=== PATIENT | female | born 1955 | race Caucasian/White ===

== ENCOUNTER → 2018-04-12 08:23 | Outpatient (CLI) | payer OTHER, SELFPAY ==
[2018-04-12 11:21] LABS: ALT 44 U/L (12-78); AST 26 U/L (15-37); Albumin 3.7 g/dL (3.4-5.0); Alkaline Phosphatase 83 U/L (46-116); Anion Gap 7.2 mmol/L (3-11); BUN 21 mg/dL (7-18); Bilirubin, Total 0.5 mg/dL (0.2-1.0); CO2 29.8 mmol/L (21.0-32.0); CREATININE 0.76 mg/dL (0.55-1.02); Calcium 9.2 mg/dL (8.5-10.1); Chloride 108 mmol/L (98-107); Cholesterol 205 mg/dL (50-200); Glucose 97 mg/dL (70-100); HDL Cholesterol 57 mg/dL (40-60); LDL CHOLESTEROL 129 mg/dL (<100); Sodium 145 mmol/L (136-145); Total Protein 6.8 g/dL (6.4-8.2); Triglyceride 132 mg/dL (30-150)
== END ==
PROVIDERS: PCP Family Medicine; Visit Provider Family Medicine
DX: I10 Essential (primary) hypertension (principal)
CPT/HCPCS: 36415; 80053; 80061; 83721

== ENCOUNTER 2018-10-08 14:53 | Outpatient (REF) | payer OTHER, SELFPAY ==
--- NOTE | 2018-10-08 14:00 | PAPFT_PTH ---
PATIENT: Ximena Mcarthur LOC: [facility] U#:[id number] AGE/SX: 63/F ROOM: RE10/08/[address]: Holly Mcknight MD, DC : 1955 BED: DIS: 10/08/2018 SPEC #: [id number] RECD: 10/09/18 13:18 STATUS: ELSIE REQ #: [id number] JE: 10/08/18 14:[address]: Holly Mcknight [facility] Cytology RECD BY: Lizet Gastelum Tissues: 1 - CX/ENDOCX FOR PAP SMEARS Procedures: PAP THIN PREP/UVM Screening HPV DNA PROBE Comments: [id number]
== END 2018-10-08 15:13 ==
LOC: LBN 14:53
PROVIDERS: PCP Family Medicine; Visit Provider Family Medicine
DX: Z12.4 Encounter for screening for malignant neoplasm of cervix (principal); Z11.51 Encounter for screening for human papillomavirus (HPV)
CPT/HCPCS: 88142; 87624

== ENCOUNTER 2018-10-29 01:27 | Outpatient (CLI) | payer OTHER, SELFPAY ==
[2018-10-29 08:25] LABS: HCT 44.3 % (36.0-46.0); HGB 15.2 g/dL (12.0-15.5); Mean Corp. HGB Concentration 34.3 g/dL (32.0-36.0); Mean Corpuscular Hemoglobin 33.2 pg (27.0-33.0); Mean Corpuscular Volume 96.7 fL (80-95); Mean Platelet Volume 9.8 fL (8.0-11.0); Platelet Count 182 x1000/uL (130-400); RBC 4.58 m/cumm (4.00-5.20); RBC Distribution Width 12.7 % (11.7-14.6); White Blood Cell Count 3.42 k/cumm (4.4-10.8)
[2018-10-29 09:17] LABS: HDL Cholesterol 57 mg/dL (40-60)
[2018-10-29 09:23] LABS: Hemoglobin A1C 5.3 % (4.5-6.2)
[2018-10-29 09:29] LABS: Cholesterol 198 mg/dL (50-200); LDL CHOLESTEROL 119 mg/dL (<100); TSH (W/Ref FT4) 2.46 uIU/mL (0.358-3.74); Triglyceride 75 mg/dL (30-150)
[2018-10-29 13:55] LABS: Iron 118 ug/dL (50-175)
== END 2018-10-29 01:47 ==
PROVIDERS: PCP Family Medicine; Visit Provider Family Medicine
DX: I10 Essential (primary) hypertension (principal); R53.83 Other fatigue
CPT/HCPCS: 36415; 80061; 83721; 85027; 83036; 83540; 84443

== ENCOUNTER 2019-03-14 11:05 | Outpatient (CLI) | payer OTHER, SELFPAY ==
--- NOTE | 2019-03-14 09:29 | DI.RAD_ITS ---
SYMPTOM/DIAGNOSIS: PAIN IN RT KATHE, PAIN IN LEFT HIP BILATERAL HIPS AND PELVIS: Comparison 12/29/15 and 12/11/16 There are again seen post surgical changes of a right total hip replacement. The orthopaedic hardware appears in good position. No suspicious lucencies are seen in or about the orthopaedic hardware. The left hip appears well maintained. There is a tiny calcification adjacent to the lateral aspect of the head of the left femur. It appears nonspecific and probably reflects old injury or chondrocalcinosis. No acute fracture or dislocation is appreciated. There are mild to moderate degenerative changes seen in the lower lumbar spine. The sacroiliac joints show mild degenerative changes. Mild cystic change and sclerosis is seen in the symphysis pubis which appears unchanged. IMPRESSION: 1. No acute abnormality. 2. Stable right THR 3. Degenerative changes in the lumbar spine.
== END 2019-03-14 11:25 ==
PROVIDERS: PCP Family Medicine; Visit Provider Student in an Organized Health Care Education/Training Program
DX: M25.552 Pain in left hip (principal); M25.551 Pain in right hip; Z96.641 Presence of right artificial hip joint; M53.3 Sacrococcygeal disorders, not elsewhere classified
CPT/HCPCS: 73521

== ENCOUNTER 2019-03-20 00:51 | Outpatient (CLI) | payer OTHER, SELFPAY ==
[2019-03-20] MEDS: Omnipaque 300 MG/ML 10 ML BTL IJ (10:13)
[2019-03-20] MEDS: methylPREDNISolone ACETATE 80 MG/ML VIAL IM (10:14)
[2019-03-20] MEDS: Bupivacaine 0.5% Pres-Free 10 ML VIAL 6 ML IJ (10:15)
--- NOTE | 2019-03-21 08:42 | W.PROCNOTE ---
Date of service: 03/20/19 Time of Service: 09:42 Procedure Note Date of procedure: 03/20/19 Procedure: Left Hip Injection with Fluoroscopic Guidance Surgeon/Proceduralist/Physician: Nicholas Padilla Procedure Diagnosis: Left Hip Osteoarthritis Procedure Indications: Tanya has had persistent pain of the LEFT hip and groin. Noninvasive measures have been tried. To serve as both diagnostic and therapeutic, an injection under fluoroscopy was recommended. I had discussed the risks of the procedure and the patient elected to proceed. Procedure Description: Tanya was greeted in the flouroscopy room. The correct side was identified and the consent was reviewed with the patient and signed. The patient was then placed in the supine position on the fluoroscopy table. The LEFT hip was then prepped with Chloraprep. The anterolateral injection starting point was identiifed by bony landmarks and fluoroscopy. The skin and soft tissue in the tract of the injection was anesthetized with 1% Lidocaine. A spinal needle was then inserted deep into the hip joint at the level of the lateral femoral neck under fluoroscopic guidance. A small amount of Omnipaque solution was injected to confirm intraarticular placement. Once confirmed, the hip was injected with 6cc of 0.5% Bupivicaine and 80mg of Depo-Medrol. A bandaid was placed on the injection site. The patient tolerated the procedure well and noted improvement in pre-injection pain.
== END 2019-03-20 01:11 ==
PROVIDERS: PCP Family Medicine; Visit Provider Student in an Organized Health Care Education/Training Program
DX: M16.12 Unilateral primary osteoarthritis, left hip (principal); M25.552 Pain in left hip
CPT/HCPCS: 20610; 77002; 76000; J1040

== ENCOUNTER 2019-06-13 11:03 | Outpatient (CLI) | payer OTHER, SELFPAY ==
[2019-06-13 12:00] LABS: Abs Immature Grans 0.01 k/cumm (0.0-0.09); Absolute Basophil Count 0.01 k/cumm (0.0-0.2); Absolute Eosinophil Count 0.38 k/cumm (0.0-0.7); Absolute Monocyte Count 0.51 k/cumm (0.11-0.7); Absolute Neutrophil Count 3.81 k/cumm (1.2-6.7); Basophils % 0.2; Eosinophils % 6.2; HCT 44.1 % (36.0-46.0); HGB 15.1 g/dL (12.0-15.5); Immature Grans % 0.2; Lymphocytes % 22.9; Mean Corp. HGB Concentration 34.2 g/dL (32.0-36.0); Mean Corpuscular Hemoglobin 33.1 pg (27.0-33.0); Mean Corpuscular Volume 96.7 fL (80-95); Monocytes % 8.3; Neutrophils % 62.2; Platelet Count 315 x1000/uL (130-400); RBC 4.56 m/cumm (4.00-5.20); RBC Distribution Width 12.8 % (11.7-14.6); White Blood Cell Count 6.12 k/cumm (4.4-10.8)
[2019-06-13 12:59] LABS: ALT 23 U/L (14-59); AST 17 U/L (15-37); Albumin 3.5 g/dL (3.4-5.0); Alkaline Phosphatase 77 U/L (46-116); Bilirubin, Direct 0.09 mg/dL (0.00-0.20); Bilirubin, Total 0.3 mg/dL (0.2-1.0); C-Reactive Protein 0.54 mg/dL (0.0-0.3); TSH (W/Ref FT4) 1.49 uIU/mL (0.36-3.74); Total Protein 6.8 g/dL (6.4-8.2)
[2019-06-16 15:29] LABS: ANA Interpretation Negative (NEGAT)
== END 2019-06-13 11:23 ==
PROVIDERS: PCP Family Medicine; Visit Provider Allergy & Immunology
DX: L50.1 Idiopathic urticaria (principal)
CPT/HCPCS: 36415; 80076; 84443; 85025; 86038; 86140

== ENCOUNTER 2019-10-16 00:17 | Outpatient (CLI) | payer OTHER, MEDICARE, SELFPAY ==
[2019-10-16 10:45] LABS: ALT 26 U/L (14-59); AST 17 U/L (15-37); Albumin 3.6 g/dL (3.4-5.0); Alkaline Phosphatase 91 U/L (46-116); Anion Gap 5.1 mmol/L (3-11); BUN 24 mg/dL (7-18); Bilirubin, Total 0.4 mg/dL (0.2-1.0); CO2 29.9 mmol/L (21.0-32.0); CREATININE 0.86 mg/dL (0.55-1.02); Calculated LDL 131 mg/dL (<100); Chloride 107 mmol/L (98-107); Cholesterol 200 mg/dL (<200); Glucose 90 mg/dL (74-106); HDL Cholesterol 53 mg/dL (40-60); Potassium 4.8 mmol/L (3.5-5.1); Sodium 142 mmol/L (136-145); Total Protein 6.5 g/dL (6.4-8.2); Triglyceride 83 mg/dL (<150)
== END 2019-10-16 00:37 ==
PROVIDERS: PCP Family Medicine; Visit Provider Family Medicine
DX: I10 Essential (primary) hypertension (principal)
CPT/HCPCS: 36415; 80053; 80061

== ENCOUNTER 2019-10-16 01:37 | Outpatient (CLI) | payer OTHER, MEDICARE, SELFPAY ==
--- NOTE | 2019-10-16 08:30 | DI.RAD_ITS ---
EXAM: XR CERVICAL SPINE COMP 4-5V INDICATION: fell 2 weeks ago, neck pain since m54.2 cervicalgia. COMPARISON: No exams were available for comparison TECHNIQUE: 2D digital imaging was performed. FINDINGS: There is narrowing and spurring at the C 1-2 level, between the anterior arch of C1 and the dens. Th e C2-3 and C3-4 levels show facet degenerative changes but no disc space narrowing. At C4-5, there are mild endplate osteophytes projecting anteriorly. There is moderate narrowing of the C5-6 disc sp hamilton. There are endplate osteophytes and facet degenerative changes. There is mild bilateral neural foraminal narrowing. The C6-7 disc space is well maintained. There are facet degenerative changes wh ich cause mild neural foraminal narrowing on the right. IMPRESSION: Degenerative changes, greatest at C5-6 with mild bilateral neural foraminal narrowing. DATA REPOSITORY: RADIATION DOSE DELIVERED:
--- NOTE | 2019-10-16 08:30 | DI.RAD_ITS ---
EXAM: XR LUMBAR SPINE COMPLETE INDICATION: LBP, m54.5 low back pain. COMPARISON: No exams were available for comparison TECHNIQUE: 2D digital imaging was performed. FINDINGS: There tear all bodies are well maintained in height. No disc space narrowing is seen. There are sma ll to moderate-sized endplate osteophytes throughout. Facet degenerative changes are seen, greatest at L5-S1. No spondylolysis, spondylolisthesis or scoliosis is seen. A right hip prosthesis is noted . IMPRESSION: Degenerative changes greatest of the facet joints at L5-S1. DATA REPOSITORY: RADIATION DOSE DELIVERED:
== END 2019-10-16 01:57 ==
LOC: DI 01:37
PROVIDERS: PCP Family Medicine; Visit Provider Family Medicine
DX: M54.2 Cervicalgia (principal); M47.812 Spondylosis without myelopathy or radiculopathy, cervical region; Z91.81 History of falling; M54.5 Low back pain; M47.816 Spondylosis without myelopathy or radiculopathy, lumbar region; Z96.641 Presence of right artificial hip joint
CPT/HCPCS: 72050; 72110

== ENCOUNTER 2020-02-24 01:39 | Outpatient (CLI) | payer OTHER, SELFPAY ==
--- NOTE | 2020-02-24 14:30 | DI.MAMMO_ITS ---
EXAM: MG MAMMO SCREENING CLINICAL HISTORY: screening, Z12.39 TECHNIQUE: Bilateral full field digital CC and MLO mammographic images were obtained with 3D tomosyn thesis and utilizing computer aided detection (CAD). COMPARISON: Available for comparison. FINDINGS: Masses/Architectural Distortion: There is stable breast nodules. Microcalcifications: No suspicious pleomorphic-type are seen. Skin Thickening/Nipple Retraction: None. IMPRESSION: 1. No significant interval change with no specific features of malignancy noted. 2. Unless there is more urgent need, screening mammography is recommended, as per [place] [employer] guidelines. BI-RADS Category 1 - Negative Breast Density - Category B - Scattered areas of fibroglandular density A negative radiographic report should not delay biopsy if a dominant or clinically suspicious mass is present. Up to ten percent of cancers are not identified on mammography. A negative report may reinforce clinical impression. Adenosis and dense breasts may obscure an underlying neoplasm. False positive reports average 6 to 10%. Patient will receive a letter notifying them of these results.
== END 2020-02-24 01:59 ==
PROVIDERS: PCP Family Medicine; Visit Provider Family Medicine
DX: Z12.31 Encounter for screening mammogram for malignant neoplasm of breast (principal)
CPT/HCPCS: 77063; 77067

== ENCOUNTER 2020-03-29 01:21 | Outpatient (CLI) | payer OTHER, SELFPAY ==
--- NOTE | 2020-03-29 06:45 | DI.RAD_ITS ---
EXAM: XR CERVICAL SPINE COMP 4-5V CLINICAL HISTORY: neck pain following a fall,M54.2 TECHNIQUE: COMPARISON: CR XR CERVICAL SPINE COMP 4-5V from 10/16/2019 FINDINGS: Five views were obtained. There is slight narrowing intervertebral disc space at C5-6. Otherwise th e intervertebral disc spaces appear well maintained. Mild hypertrophic spurring of endplates and facet joints is noted particularly in the mid to lower ce rvical region. No evidence of fracture. Prevertebral soft tissues and tracheo laryngeal air shadows appear normal. Neural foramina appear well maintained on oblique views. IMPRESSION: Qrhm-rf-inerrfbr degenerative changes of the cervical spine, no other significant abnormality seen.
== END 2020-03-29 01:41 ==
PROVIDERS: PCP Family Medicine; Visit Provider Family Medicine
DX: M50.322 Other cervical disc degeneration at C5-C6 level (principal); M54.2 Cervicalgia
CPT/HCPCS: 72050

== ENCOUNTER 2020-08-06 04:41 | Outpatient (CLI) | payer OTHER, SELFPAY ==
[2020-08-06 13:35] LABS: ALT 33 U/L (14-59); AST 20 U/L (15-37); Albumin 3.8 g/dL (3.4-5.0); Alkaline Phosphatase 94 U/L (46-116); Anion Gap 9.7 mmol/L (3-11); BUN 23 mg/dL (7-18); Bilirubin, Total 0.5 mg/dL (0.2-1.0); CO2 27.3 mmol/L (21.0-32.0); CREATININE 1.07 mg/dL (0.55-1.02); Calcium 9.3 mg/dL (8.5-10.1); Calculated LDL 114 mg/dL (<100); Chloride 104 mmol/L (98-107); Cholesterol 196 mg/dL (<200); Estimated GFR 51.31 (mL/min/1.73m2); Glucose 73 mg/dL (74-106); HDL Cholesterol 54 mg/dL (40-60); Potassium 4.7 mmol/L (3.5-5.1); Sodium 141 mmol/L (136-145); TSH (W/Ref FT4) 1.48 uIU/mL (0.36-3.74); Total Protein 6.8 g/dL (6.4-8.2); Triglyceride 143 mg/dL (<150); Vitamin B12 628 pg/mL (193-986)
== END 2020-08-06 05:01 ==
PROVIDERS: PCP Family Medicine; Visit Provider Family Medicine
DX: I10 Essential (primary) hypertension (principal); R41.3 Other amnesia
CPT/HCPCS: 36415; 80053; 80061; 82607; 84443

== ENCOUNTER 2020-10-22 01:01 | Outpatient (CLI) | payer OTHER, SELFPAY ==
[2020-10-22 12:36] LABS: ALT 42 U/L (14-59); AST 22 U/L (15-37); Alkaline Phosphatase 101 U/L (46-116); Anion Gap 2.4 mmol/L (3-11); BUN 23 mg/dL (7-18); Bilirubin, Total 0.5 mg/dL (0.2-1.0); CO2 31.6 mmol/L (21.0-32.0); CREATININE 0.8 mg/dL (0.55-1.02); Chloride 105 mmol/L (98-107); Glucose 82 mg/dL (74-106); Potassium 4.3 mmol/L (3.5-5.1); Sodium 139 mmol/L (136-145); Total Protein 7.1 g/dL (6.4-8.2)
[2020-10-22 13:21] LABS: Hemoglobin A1C 5.3 % (<5.7)
== END 2020-10-22 01:02 | disposition home or self-care (01) ==
LOC: LOS 01:01
PROVIDERS: PCP Family Medicine; Visit Provider Family Medicine
DX: Z00.00 Encounter for general adult medical examination without abnormal findings (principal); E11.9 Type 2 diabetes mellitus without complications; R41.3 Other amnesia; I10 Essential (primary) hypertension; G47.00 Insomnia, unspecified
CPT/HCPCS: 36415; 80053; 83036; 83735

== ENCOUNTER 2021-03-09 02:29 | Outpatient (CLI) | payer OTHER, SELFPAY ==
--- NOTE | 2021-03-09 07:00 | DI.DEXA_ITS ---
Exam(s) XR DEXA BONE DENSITY W/WO OSVALDO EXAM: XR DEXA BONE DENSITY W/WO OSVALDO CLINICAL HISTORY: osteoporosis,M81.0 TECHNIQUE: [employer] C densitometer COMPARISON: CR XR LUMBAR SPINE COMPLETE from 10/16/2019. Comparison DEXA scan 2006 FINDINGS: Lateral view of the thoracic and lumbar spine shows no evidence of compression fractures. Bone mineral density measurements of the lumbar spine correspond to a total T-score of -2.1, in the osteopenic range. This represents a 7.1 percent decrease when compared with 2006. Bone mineral density measurements of the left hip correspond to a total T-score of -1.6 . The femora l neck T-score is -2.0, in the osteopenic range. This represents an 18.7 percent decrease compared to 2006.. The left forearm bone mineral density measurements correspond to a T-score of the distal 3rd of -2.4 , consistent with osteopenia. Forearm was not analyzed in 2006.. IMPRESSION: Osteopenia of the lumbar spine, left hip and left forearm. There has been significant decrease in le ft hip density when compared with 2006.
== END 2021-03-09 02:49 ==
PROVIDERS: PCP Family Medicine; Visit Provider Family Medicine
DX: M85.89 Other specified disorders of bone density and structure, multiple sites (principal); M81.0 Age-related osteoporosis without current pathological fracture
CPT/HCPCS: 77080

== ENCOUNTER 2021-05-31 12:52 | Outpatient (CLI) | payer OTHER, SELFPAY ==
--- NOTE | 2021-06-01 12:31 | DI.RAD_ITS ---
Exam(s) XR KNEE RT 3V AP,LAT,HANH EXAM: XR KNEE RT 3V AP,LAT,HANH CLINICAL HISTORY: acute right knee pain M25.561. TECHNIQUE: 2D digital imaging was performed of the right knee. Three views obtained. AP, lateral an d PA tunnel views were obtained. COMPARISON: No previous for comparison. FINDINGS: BONES: No acute fracture is present. No bony destructive lesion is seen. JOINTS: The knee is normally aligned. No joint effusion is seen. Mild spurring of the posterior neves la. SOFT TISSUE: Chondrocalcinosis. IMPRESSION: 1. Mild degenerative changes of the right knee. 2. No acute fracture or dislocation. DATA REPOSITORY: RADIATION DOSE DELIVERED:
== END 2021-05-31 13:12 ==
PROVIDERS: PCP Family Medicine; Visit Provider Nurse Practitioner Family
DX: M25.561 Pain in right knee (principal); M17.11 Unilateral primary osteoarthritis, right knee
CPT/HCPCS: 73562

== ENCOUNTER 2021-10-26 01:37 | Outpatient (CLI) | payer OTHER, SELFPAY ==
[2021-10-26 10:25] LABS: ALT 36 U/L (14-59); AST 18 U/L (15-37); Alkaline Phosphatase 96 U/L (46-116); Anion Gap 8.6 mmol/L (3-11); BUN 21 mg/dL (7-18); Bilirubin, Total 0.6 mg/dL (0.2-1.0); CO2 28.4 mmol/L (21.0-32.0); CREATININE 0.8 mg/dL (0.55-1.02); Calcium 9.2 mg/dL (8.5-10.1); Calculated LDL 125 mg/dL (<100); Chloride 106 mmol/L (98-107); Cholesterol 215 mg/dL (<200); Glucose 83 mg/dL (74-106); HDL Cholesterol 72 mg/dL (40-60); Potassium 4.6 mmol/L (3.5-5.1); Sodium 143 mmol/L (136-145); Total Protein 7.2 g/dL (6.4-8.2); Triglyceride 90 mg/dL (<150)
== END 2021-10-26 01:38 | disposition home or self-care (01) ==
LOC: LBO 01:38
PROVIDERS: PCP Family Medicine; Visit Provider Family Medicine
DX: I10 Essential (primary) hypertension (principal)
CPT/HCPCS: 36415; 80053; 80061

== ENCOUNTER 2021-12-19 03:59 | Outpatient (CLI) | payer OTHER, SELFPAY ==
--- NOTE | 2021-12-19 08:14 | DI.MAMMO_ITS ---
Exam(s) MAMMO SCREENING EXAM: MAMMO SCREENING CLINICAL HISTORY: screening,z12.39 TECHNIQUE: Bilateral full field digital CC and MLO mammographic images were obtained with 3D tomosyn thesis and utilizing computer aided detection (CAD). COMPARISON: Available for comparison. FINDINGS: Masses/Architectural Distortion: There is a stable nodule in the upper outer quadrant of the right br east. Microcalcifications: No suspicious pleomorphic-type are seen. Skin Thickening/Nipple Retraction: None. IMPRESSION: 1. No significant interval change with no specific features of malignancy noted. 2. Unless there is more urgent need, screening mammography is recommended, as per [place] [employer] guidelines. BI-RADS Category 1 - Negative Breast Density - Category B - Scattered areas of fibroglandular density Breast density category C or D implies that the patient has dense breast tissue. Dense breast tissue is very common and is not abnormal but dense breast tissue can make it harder to find cancer on a ma mmogram. Also, dense breast tissue may increase their breast cancer risk. This information about the result of the mammogram report was provided to the patient to raise their awareness. Use this report when you speak with the patient about their risks for breast cancer, which includes their family hist ory. At that time, you may recommend for more screening tests (Ultrasound or MRI) as they might be us eful based on their risk. A negative radiographic report should not delay biopsy if a dominant or clinically suspicious mass is present. Up to ten percent of cancers are not identified on mammography. A negative report may reinforce clinical impression. Adenosis and dense breasts may obscure an underlying neoplasm. False positive reports average 6 to 10%. Patient will receive a letter notifying them of these results.
== END 2021-12-19 04:19 ==
PROVIDERS: PCP Family Medicine; Visit Provider Family Medicine
DX: Z12.31 Encounter for screening mammogram for malignant neoplasm of breast (principal)
CPT/HCPCS: 77063; 77067

== ENCOUNTER 2022-02-01 08:30 | Outpatient (CLI) | payer OTHER, SELFPAY ==
--- NOTE | 2022-02-01 07:45 | DI.RAD_ITS ---
Exam(s) XR SHOULDER LT COMPLETE 2+V EXAM: XR SHOULDER LT COMPLETE 2+V CLINICAL HISTORY: left shoulder pain,m25.519. TECHNIQUE: 2D digital imaging was performed. COMPARISON: No exams were available for comparison FINDINGS: Five views No evidence of fracture dislocation nor diminution of the subacromial space and there are no abnormal soft tissue calcifications. Small degenerative subarticular cysts are noted in the humeral head. N o osteophytes in the glenohumeral joint. Some degenerative change-mild is noted in the AC joint. Massimo ne density normal. IMPRESSION: DATA REPOSITORY: RADIATION DOSE DELIVERED:
== END 2022-02-01 08:50 ==
PROVIDERS: PCP Family Medicine; Visit Provider Family Medicine
DX: M25.512 Pain in left shoulder (principal); M25.812 Other specified joint disorders, left shoulder
CPT/HCPCS: 73030

== ENCOUNTER 2022-08-14 13:28 | Outpatient (CLI) | payer OTHER, SELFPAY ==
--- NOTE | 2022-08-14 13:15 | RT.EKG_ITS ---
APPROVED REPORT Exam: Resting ECG Reason for Exam: Chest pain Patient Location: O HR:59 bpm ECG Measurements Heart Rate 59 AXIS SD 181 P 28 QRSd 97 QRS 10 QT 428 T 31 QTc 424 Conclusion Sinus rhythm...normal P axis, V-rate 50- 99 Normal Electrocardiogram
== END 2022-08-14 13:29 | disposition home or self-care (01) ==
LOC: DI.CM 13:29
PROVIDERS: PCP Family Medicine; Visit Provider Family Medicine
DX: R00.2 Palpitations (principal); R06.02 Shortness of breath; R07.89 Other chest pain
CPT/HCPCS: 93010

== ENCOUNTER 2022-08-17 02:30 | Outpatient (CLI) | payer OTHER, SELFPAY ==
[2022-08-17] MEDS: Albuterol HFA 18 GM 200 PUFF INH IH (08:53)
[2022-08-17] MEDS: Inhaler, Assist Device 1 EACH MC (08:54)
--- NOTE | 2022-08-29 11:10 | W.PFT ---
Date of service: 08/17/22 Time of Service: 08:00 Pulmonary Function Test Result Requesting Provider Holly Mcknight Indications: ROBERSON Interpretation Spirometry: There is no airflow limitation. There is no significant bronchodilator response. Impression Normal spirometry Clinical Correlation therefore is recommended.
== END 2022-08-17 02:31 | disposition home or self-care (01) ==
PROVIDERS: PCP Family Medicine; Visit Provider Family Medicine
DX: R06.02 Shortness of breath (principal); R07.89 Other chest pain
CPT/HCPCS: 94060

== ENCOUNTER 2022-08-24 01:03 | Outpatient (CLI) | payer OTHER, SELFPAY ==
--- NOTE | 2022-08-24 06:45 | DI.NM_ITS ---
APPROVED REPORT Exam: Exercise Treadmill Patient Location: Out-Patient Room/Bed: Stress Nurse: Geno Post RN Ordering Provider:GOKUL BREWER, Contact Number: [phone] BMI: 32.61 Baseline Rhythm: Sinus Bradycardia Comment: T wave inversion in lead III when standing Indications: CHEST PAIN, SOB, PALPITATION Medical History Medical History: Chronic ankle pain, Depression, HTN, OA of hip, Palpitations, Chest pressure, SOB, M mary changes Cardiac Medications: Losartan, Amlodipine, Aspirin, Allergies: Lisinopril, Tramadol Cardiac Risk Factors: FHX of CAD, HTN Previous Cardiac Procedures: None Pretest Chest Pain Characteristics: No chest pain Exercise History: Physically active Physical Disabilities: None reported Lung Sounds: Clear to auscultation Heart Sounds: Regular Stress Test Details Test: Exercise stress testing was performed using a Ryley protocol. Nuclear Acquisition: Rest Tc-99m/Stress Tc-99m 1 day Rest Isotope: Tc-99m Sestamibi. Dose: 10.0 Date: 08/24/2022 Injection Time: 0915 Stress Isotope: Tc-99m Sestamibi. Dose: 30.0 Date: 08/24/2022 Injection Time: 1150 HR Resting HR Supine: 57 bpm Max Heart Rate (APMHR): 152.953743 bpm Resting HR Standin bpm Target HR (85% APMHR): 129.658684 bpm Max HR Achieved: 138 bpm % of APMHR: 90.79 Recovery HR: 75 bpm HR response to stress: Normal HR response to stress BP Resting BP Supine: 132/72 mmHg Resting BP Standin/78 mmHg Max BP: 178/78 mmHg Recovery BP: 120/68 mmHg BP response to stress: Normal blood pressure response to stress. ECG Resting ECG: Sinus Bradycardia Ectopy: None Stress ECG: Sinus Tachycardia ST Change: No significant ST segment changes noted Arrhythmia: PVCs, rare PAC Recovery ECG: Sinus Rhythm Recovery ST Change: No significant ST segment changes noted Recovery Arrhythmia: PACs Clinical Reason for Termination: Fatigue Stress Symptoms: Dyspnea, General Fatigue Exercise duration: 9 min13 sec Highest Stage Reached: Stage 4: 4.2 mph at 16% grade. Exercise capacity: 10.52 METs Flores Treadmill Score: 8.7 Rate Pressure Product: [id number] Stress ECG Conclusion 1. The resting electrocardiogram showed rightward axis, otherwise normal 2. Patient exercised on the Ryley protocol and completed a workload of 10.52 METS, stopping due to fa tigue 3. Normal heart rate and blood pressure response to exercise. The patient achieved 91% of predicted heart rate for age 4. There was no electrocardiographic evidence of myocardial ischemia 5. There were no significant dysrhythmias 6. See MPI report Flores Treadmill Score is 8.7 which is Low risk. Stress Test Summary STAGE Time (mins) Speed (mph) Grade (%) HR BP SpO2 SYMPTOMS METS Supine 57 132/72 Standing 82 130/78 96 1 3 1.7 10 108 158/72 93 4.5 2 6 2.5 12 121 168/68 7 3 9 3.4 14 133 178/78 93 10 1 min recovery 113 178/60 94 3 min recovery 85 138/68 6 min recovery 75 120/68 MPI Conclusion Normal myocardial perfusion without evidence of ischemia or prior infarction EF 68%, normal wall motion Radiologist Interpretation Radiologist agrees with Clinical Research Specialist's Interpretation. Radiologist Interpretation by: Mehul Laird MD Interpretation Date/Time: 08/24/22
== END 2022-08-24 01:23 ==
LOC: DI 01:03
PROVIDERS: PCP Family Medicine; Visit Provider Family Medicine
DX: R00.2 Palpitations (principal); R06.02 Shortness of breath; R07.89 Other chest pain
CPT/HCPCS: 78452; 93017

== ENCOUNTER 2022-08-24 02:25 | Outpatient (CLI) | payer OTHER, SELFPAY ==
[2022-08-24 12:59] LABS: Absolute Basophil Count 0.03 10^3/uL (0.0-0.2); Absolute Lymphocyte Count 1.65 10^3/uL (1.2-3.4); Absolute Monocyte Count 0.38 10^3/uL (0.1-0.8); Absolute Neutrophil Count 2.44 10^3/uL (1.2-6.7); Basophils % 0.6; Eosinophils % 4.3; HCT 42.7 % (36.0-46.0); HGB 14.7 g/dL (11.2-15.7); Lymphocytes % 35.1; MCH 33.1 pg (27.0-33.0); MCHC 34.4 % (32.0-36.0); MCV 96 fL (80-95); MPV 9.3 fL (8.0-11.0); Monocytes % 8.1; Neutrophils % 51.9; Platelet Count 213 10^3/uL (130-400); RBC 4.44 10^6/uL (3.93-5.22); RDW 12.6 % (11.7-14.6); RDW-SD 44.8 fL
[2022-08-24 14:00] LABS: ALT 28 U/L (14-59); AST 21 U/L (15-37); Albumin 4.1 g/dL (3.4-5.0); Alkaline Phosphatase 92 U/L (46-116); Anion Gap 7.1 mmol/L (3-11); BUN 17 mg/dL (7-18); Bilirubin, Total 0.5 mg/dL (0.2-1.0); CO2 28.9 mmol/L (21.0-32.0); CREATININE 0.8 mg/dL (0.55-1.02); Calcium 9.2 mg/dL (8.5-10.1); Chloride 106 mmol/L (98-107); Estimated GFR 80.21 (mL/min/1.73m2); Glucose 88 mg/dL (74-106); Sodium 142 mmol/L (136-145); TSH (W/Ref FT4) 1.19 uIU/mL (0.36-3.74)
== END 2022-08-24 02:26 | disposition home or self-care (01) ==
LOC: LBO 02:25
PROVIDERS: PCP Family Medicine; Visit Provider Family Medicine
DX: R06.02 Shortness of breath (principal); R42 Dizziness and giddiness
CPT/HCPCS: 36415; 80053; 84443; 85025

== ENCOUNTER 2022-08-24 13:16 | Outpatient (RCR) | payer OTHER, SELFPAY ==
--- NOTE | 2022-08-24 13:15 | HOLTER_ITS ---
APPROVED REPORT Conclusion This is a 48-hour Holter monitor ordered for palpitations Rhythm throughout was sinus with an average heart rate of 65. Minimum was 50, maximum 105 There were very rare isolated atrial and ventricular premature beats There was 1 supraventricular triplet There was no atrial fibrillation, no high-grade AV block, no pauses greater than 3 seconds There were no apparent patient symptoms
== END 2022-08-26 23:59 | disposition home or self-care (01) ==
LOC: CARDOPNVT 13:16
PROVIDERS: PCP Family Medicine; Visit Provider Family Medicine
DX: I49.8 Other specified cardiac arrhythmias (principal)
CPT/HCPCS: 93225; 93226

== ENCOUNTER 2022-09-11 01:56 | Outpatient (CLI) | payer OTHER, SELFPAY ==
--- NOTE | 2022-09-11 07:30 | DI.US_ITS ---
Exam(s) US CAROTID EXAM: US CAROTID CLINICAL HISTORY: lightheaded,r42. TECHNIQUE: Ultrasound carotids performed using grayscale, color-flow, and spectral Doppler imaging. COMPARISON: None. FINDINGS: RIGHT CAROTID ARTERY: Plaque: None. Velocity elevation: None. LEFT CAROTID ARTERY: Plaque: Minimal plaque is seen in the left carotid bulb. Velocity elevation: None. VERTEBRAL ARTERIES: Antegrade flow. Measurements: R Bulb: 90.6cm/s PS / 27.1cm/s ED R CCA: 108.7cm/s PS / 28.4cm/s ED R ECA: 111.5cm/s PS / 22.2cm/s ED R ICA Prox: 77.3cm/s PS / 20.7cm/s ED R ICA Mid: 86cm/s PS / 29.4cm/s ED R ICA Distal: 82.6cm/s PS /18.1cm/s ED R Vert: 46.6cm/s PS / 14.9cm/s ED R SVR: 0.8 R DVR: 0.9 L Bulb: 71.7cm/s PS / 24.7cm/s ED L CCA: 80.4cm/s PS / 27.27cm/s ED L ECA: 120.3cm/s PS / 21.7cm/s ED L ICA Prox: 77.6cm/s PS / 24.6cm/s ED L ICA Mid: 86.7cm/s PS / 28.3cm/s ED L ICA Distal: 68.4cm/s PS / 24.6cm/s ED L Vert: 42.1cm/s PS / 14.4cm/s ED L SVR: 1.1 L DVR: 0.9 IMPRESSION: No evidence for hemodynamically significant carotid stenosis. Criteria for Carotid Stenosis: Normal: ICA PSV <125 cm/s no plaque or intimal thickening is visible. <50% stenosis: ICA PSV <125 cm/s and plaque or intimal thickening is visible. 50-69% stenosis: ICA PSV is 125-250 cm/s and plaque is visible. >70% stenosis to near occlusion: ICA PSV >250 cm/s with visible plaque and luminal narrowing. DATA REPOSITORY:
== END 2022-09-11 02:16 ==
PROVIDERS: PCP Family Medicine; Visit Provider Family Medicine
DX: R42 Dizziness and giddiness (principal)
CPT/HCPCS: 93880

== ENCOUNTER 2022-09-27 02:56 | Outpatient (CLI) | payer OTHER, SELFPAY ==
--- NOTE | 2022-09-27 10:30 | DI.US_ITS ---
APPROVED REPORT EXAM: Comprehensive 2D, Doppler, and color-flow Echocardiogram Patient Location: Out-Patient [facility] Supervisor: Marguerite Pitts RDCS (AE) Indications: SOB, Chest pressure, palpitations Other Information Study Quality: Adequate Conclusion Normal left ventricular wall thickness and chamber size. Ejection fraction is 59%. Wall motion is n ormal Normal right ventricular size and systolic function Both atria are normal in size Aortic valve is mildly sclerotic without stenosis or regurgitation There is no additional structural or hemodynamically significant valvular disease Estimated right ventricular systolic pressure is 32 mmHg Wall motion Left Ventricle The left ventricle is normal size. The left ventricular systolic function is normal. The left ventric ular ejection fraction is within the normal range. There is normal left ventricular wall thickness. T here is normal LV segmental wall motion. There is no ventricular septal defect visualized. LVEF is 59 %. Right Ventricle The right ventricle is normal size. The right ventricular systolic function is normal. The RVSP is 31 .9mmHg. Atria The left atrium size is normal. The right atrium size is normal. The interatrial septum is intact wit h no evidence for an atrial septal defect. Aortic Valve The Aortic valve is mildly sclerotic. There is no aortic valvular stenosis. No aortic regurgitation i s present. Mitral Valve The mitral valve is normal in structure. No evidence of mitral valve stenosis. Trace mitral regurgita tion. Tricuspid Valve The tricuspid valve is normal in structure. There is no tricuspid valve stenosis. Mild tricuspid regu rgitation. Pulmonic Valve The pulmonary valve is normal in structure. There is no pulmonic valvular stenosis. Trace pulmonic re gurgitation. Great Vessels The aortic root is normal in size. Ascending aorta is not well visualized. Aortic arch is normal in c aliber. IVC is normal in size and collapses >50% with inspiration. Pericardium There is no pericardial effusion. 2D Dimensions IVSD d PLAX 1.04 cm F: 0.6-1.0 LV Vol A2C d MOD 94.3 mL LVPW d PLAX 1.02 cm F: 0.6 - 1.0 LV Vol A4C d MOD 94.6 mL LVID d PLAX 4.38 cm F: 3.8 - 5.2 LA vol/ BSA A2C s A-L 28.6 mL/m2 LVDs 3.05 cm F: 2.2 - 3.5 LA vol/ BSA A4C s A-L 30.0 mL/m2 Ao Root d 2.57 cm F: 2.7 - 3.3 LA Vol/ BSA Biplane s A-L 29.5 mL/m2 RA Area A4C 9.48 cm2 LA Area A4C s MOD 17.06 cm2 RA Vol/ BSA A4C s A-L 11.0 mL/m2 LA Area A2C s MOD 16.53 cm2 LV EF Teichholz 57.0 % LV EF A4C MOD 59.4 % LVEF (Payne's) 57.61 % F: 54 - 74 LV EF A2C MOD 58.4 % LV Volume 74.67 mL F: 46 - 106 LV EF Biplane MOD 57.6 % LV Volume Index 43.66 mL/m2 F: 29 - 61 SV 54.25 mL LV Vol Biplane MOD 94.2 mL SV Index 31.79 mL/m2 FS 29.70 % M-Mode TAPSE 1.94 cm (M/F) >1.7 LV Diastology MV E' medial 0.059 (>0.07 m/s) E/A Ratio 0.8 LV E/e MED 12.80 (<14) MV E Vmax 0.75 (0.4-1.3 m/s) MV E' lateral 0.085 (>0.1 m/s) MV A Vmax 0.95 (0.4-1.3 m/s) LV E/e LAT 8.85 (<14) MV E/A Ratio 0.76 MV E/E' medial 12.82 MV E/E' lateral 8.87 Aortic Valve LVOT Area 2.85 cm2 AoV Area Vmax 1.88 cm2 LVOT Vmax 1.45 m/s AoV Area/ BSA (Vmax) 1.10 cm2/m2 LVOT Mean Efren. 0.92 m/s ZORAN Mean Efren. 1.75 cm2 LVOT Peak Grad 8.5 mmHg ZORAN Mean Efren. Index 1.03 cm2/m2 LVOT Mean Grad 4.1 mmHg LVOT VTI 0.375 m LVOT Diam s 1.90 cm AoV Vmax 2.21 m/s Velocity Ratio 0.66 AoV Mean Efren. 1.50 m/s AoV Peak Grad 19.5 mmHg LVOT SV 106.90 mL AoV Mean Grad 10.1 mmHg AoV VTI 0.514 m AoV Area VTI 2.08 cm2 AoV Area/ BSA (VTI) 1.22 cm/m2 Mitral Valve MV DT 246 (160-240 msec) MV PHT 71 msec MV Area PHT 3.09 cm2 MV VTI 0.301 m MV Area VTI 3.55 (4.0-6.0 cm2) Pulmonary Valve PV Vmax 1.33 (0.5-1.5 m/s) RVOT Peak Gr. 3.00 mmHg PV Peak Grad 7.1 mmHg RVOT Mean Gr. 1.40 mmHg PV Mean Grad 3.6 mmHg RVOT VTI 0.200 m PV VTI 0.288 m RVOT Vmax 0.87 m/s Tricuspid Valve TR Peak Grad 28.9 mmHg TR Vmax 2.69 m/s RA Pressure 3.00 mmHg RVSP (TR) 31.9 mmHg
== END 2022-09-27 03:16 ==
LOC: DI 02:58
PROVIDERS: PCP Family Medicine; Visit Provider Family Medicine
DX: R00.2 Palpitations (principal); R06.02 Shortness of breath; R07.89 Other chest pain
CPT/HCPCS: 93306

== ENCOUNTER 2023-01-10 01:58 | Outpatient (CLI) | payer OTHER, SELFPAY ==
--- NOTE | 2023-01-10 12:25 | DI.MAMMO_ITS ---
Exam(s) MAMMO SCREENING EXAM: MAMMO SCREENING CLINICAL HISTORY: SCREENING, Z12.39 TECHNIQUE: Mammograms were interpreted according to the usual protocol including computer analysis w Donay CAD system, tomosynthesis and C-view imaging. COMPARISON: 2012 through 2021 FINDINGS: The breasts are composed of mainly fatty density , Breast Density category A. No suspicious masses or suspicious microcalcifications are seen. No skin thickening or abnormal axillary lymph nodes are seen. There has been no significant change from prior exams. IMPRESSION: BI-RADS Category 1, Negative mammogram Yearly screening mammography is recommended. Breast Density - Category A, fatty density. A negative radiographic report should not delay biopsy if a dominant or clinically suspicious mass is present. Up to ten percent of cancers are not identified on mammography. A negative report may reinforce clinical impression. Adenosis and dense breasts may obscure an underlying neoplasm. False positive reports average 6 to 10%. Patient will receive a letter notifying them of these results.
== END 2023-01-10 02:18 ==
PROVIDERS: PCP Family Medicine; Visit Provider Family Medicine
DX: Z12.31 Encounter for screening mammogram for malignant neoplasm of breast (principal)
CPT/HCPCS: 77063; 77067

== ENCOUNTER 2023-06-02 05:11 | Emergency (ER) | payer OTHER, SELFPAY ==
[2023-06-02] VITALS (28 sets, daily range): BP systolic 101–144; BP diastolic 46–78; PULSE 47–63; RESP 10–23; TEMP 35.8; O2SAT 91–100
--- NOTE | 2023-06-02 05:00 | RT.EKG_ITS ---
APPROVED REPORT Exam: Resting ECG Reason for Exam: chest pain Patient Location: E HR:49 bpm ECG Measurements Heart Rate 49 AXIS IL 207 P 62 QRSd 94 QRS 15 QT 490 T 40 QTc 445 Conclusion Sinus bradycardia...rate< 60 Narrow complex sinus bradycardia at a rate of 49. Normal axis. First-degree AV block. QTc within n ormal limits. No ST segment abnormalities. No T wave inversions. Compared to prior dated last year first-degree AV block is new.
--- NOTE | 2023-06-02 05:15 | DI.CT_ITS ---
Exam(s) CT THORAX ABD/PEL CTA EXAM: CT THORAX ABD/PEL CTA CLINICAL HISTORY: Central chest pain. TECHNIQUE: Imaging Protocol: Axial CT angiography was performed with multi-slice acquisition and m ulti-planar and/or 3D reconstructions. CONTRAST MATERIAL: Intravenous: Omnipaque 350 contrast volume:100 mL Oral: No COMPARISON: There are no priors for comparison. FINDINGS: The examination is limited due to patient motion artifact. CHEST: Tracheobronchial tree: Patent where visualized. Pulmonary parenchyma: No consolidation or dominant measurable mass. No architectural distortion. Pulmonary Arteries: No evidence of filling defect to suggest pulmonary emboli. Mediastinum and Jessie: No dominant adenopathy or fluid collection. There is a small hiatal hernia. Th e esophagus is otherwise unremarkable. Visualized thyroid: Unremarkable. Pleura: No effusion or pneumothorax. Heart: There may be mild cardiomegaly. No coronary artery calcifications are seen. No pericardial ef fusion. Aorta: Thoracic aorta non-dilated. No evidence of dissection. Mild atherosclerosis. Soft Tissues: Unremarkable. Bones: Within normal limits for the patient's age. ABDOMEN AND PELVIS: Abdomen: Celiac axis/mesenteric arteries: No evidence of occlusion or significant stenosis. Minimal atheroscl erosis. Renal Arteries: No evidence of occlusion or significant stenosis. There is a single renal artery per fusing each kidney. Aorta: No evidence of occlusion or significant stenosis. No aneurysm or dissection. Pelvis: Iliac Arteries: No evidence of occlusion or significant stenosis. Common Femoral Arteries: No evidence of occlusion or significant stenosis. ABDOMEN: Liver: Normal density. No measurable mass. Gallbladder and Biliary Tract: No radiodense calculus or dilation. Pancreas: Normal density, no abnormal calcifications or inflammatory process. Spleen: Normal. Adrenals: No masses seen. Kidneys: Normal size, contour and axis. No radiodense stones or obstructive uropathy. No masses seen. Bowel: There is diverticulosis of the colon but no evidence of acute diverticulitis. There is no raeann dence of bowel obstruction or bowel wall thickening. There is no evidence of appendicitis. Peritoneal Cavity: No ascites, collection or mesenteric inflammatory response. No free air. Lymph Nodes: Within normal limits. Bones: Within normal limits for the patient's age. The patient has a right total hip replacement. Soft Tissues: There is a small fat containing umbilical hernia. PELVIS: Bladder: Symmetric distention, no gross wall thickening. Reproductive Organs: Unremarkable as visualized. Lymph Nodes: Within normal limits. Bones: Within normal limits for the patient's age. IMPRESSION: 1. Normal CT Angiogram of the chest, abdomen and pelvis. 2. No acute chest, abdominal or pelvic process. 3. Incidental findings in the chest, abdomen and pelvis as described above. RADIATION DOSE DELIVERED: 1,110.08mGy.cm Total DLP DATA REPOSITORY: All CT scans at this facility are submitted to the National Radiology Data Registry (NRDR) Dose Index Registry (DIR) with the [employer] (ACR). RADIATION OPTIMIZATION: All CT scans at this facility use at least one of these dose optimization te chniques: automated exposure control; mA and/or kV adjustment per patient size (includes targeted exa ms where dose is matched to clinical indication); or iterative reconstruction.
--- NOTE | 2023-06-02 05:21 | ED.GENADUL_ITS ---
Discharge Plan Discharge Details Chief Complaint: Chest Pain Clinical Impression: Acute lactic acidosis, Chest pain, unspecified, First degree AV block Primary Care Provider: Holly Mcknight ED Provider: No Castro Home Meds and New Rx's Prescriptions: No Action cyanocobalamin (vitamin B-12) 1,000 mcg capsule 1,000 mcg PO DAILY losartan 50 mg tablet 50 mg PO DAILY Qty: 90 4RF semaglutide 3 mg tablet 3 mg PO DAILY 30 Days Qty: 30 2RF aspirin [Aspir-81] 81 MG tablet,delayed release (DR/EC) 81 mg PO DAILY bupropion HCl [Wellbutrin SR] 150 mg tablet sustained-release 12 hr 150 mg PO DAILY Qty: 90 4RF amlodipine 10 mg tablet 10 mg PO DAILY Qty: 90 4RF HPI General Date/Time Provider Initiated Documentation: 06/02/23 05:21 . HPI Narrative: HPI This is a 67-year-old female with a history of elevated BMI arrived to the emergency department via private vehicle in the setting of chest pain. Patient describes a central chest pain that began yesterday afternoon. It started as mild and steadily worsened throughout the night. She describes it as central nonradiating chest pain. She has no history of coronary artery disease. She did not take any falls. She is nauseous and has vomited. She denies any exacerbators and alleviators. No prior history of similar symptoms. He does feel mildly short of breath. She has been coughing but she has not had any fevers. She denies abdominal pain dysuria and frequency. Exam General: No-appearing in no acute distress speaking in complete sentences. Head: Normocephalic, atraumatic. Eye: Extraocular eye movements intact. No conjunctival injection. No scleral icterus. Ear, nose, mouth, throat: Grossly normal inspection. Normal voice, handling secretions normally. Neck: Trachea midline. Cardiovascular: Well-perfused distal extremities. Regular rate and rhythm. Respiratory: Nonlabored respiration. Clear lungs bilaterally. Gastrointestinal: Nondistended abdomen. Soft nontender Musculoskeletal: No edema. Moving all 4 extremities spontaneously. Skin: Normal for age and race, grossly normal temperature and turgor. No acute rash. Neurologic: Alert and appropriate, no apparent acute deficits. Psychiatric: Mood and manner are appropriate. Grooming and personal hygiene are appropriate. MDM This is a very uncomfortable appearing bradycardic but afebrile 67-year-old female with chest pain concerning for aortic dissection in setting of her nonischemic ECG. Her limited bedside echocardiogram showed no sign of any ruptured AAA and showed a normal aortic outflow track however given her persistent pain and her ill appearance we will proceed to CT angiogram of her chest abdomen pelvis. No trauma so doubt pneumothorax. No rash to chest to suggest zoster. Not hypotensive nor dialysis patient so low likelihood for tamponade. No history of emesis so doubt esophageal rupture. No significant fevers nor cough so doubt pneumonia. Pancreatitis is certainly a possibility based on the patient's history of hyperlipidemia and elevated BMI so we will obtain a lipase. No right upper quadrant tenderness to suggest acute cholecystitis. Patient just got over COVID and certainly could have a pulmonary embolism though she is neither tachycardic nor hypoxic. CT angiogram of her chest should assess for PE. Mesenteric ischemia is also certainly a possibility so we will obtain a lactate. We will also obtain 2 sets of troponins. We will treat pain with fentanyl and nausea with ondansetron. Given concern for dissection will defer aspirin at this point time. I sent a type and screen. 5:43 AM CBC lacks anemia thrombocytopenia and leukocytosis. Patient does have mild acute lactic acidosis with a venous lactate of 2.1 mmol/L. She is receiving 500 cc crystalloid bolus. 6:06 AM Negative initial troponin. Comprehensive metabolic panel showing no TARA. Mild hyperglycemia. Mild anion gap. Normal bicarbonate. Not consistent with DKA. Mildly elevated AST and ALT. Normal alkaline phosphatase. No hyperbilirubinemia. Reassuring normal lipase not consistent with pancreatitis. 7:45 AM Patient felt improved. She reported that she had had a negative stress test in the past 6 months. Chart review indicates that last year patient had a myocardial perfusion scan with no evidence of ischemia. Based on her history of hypertension her elevated BMI she may benefit from a repeat stress test versus an urgent left heart catheterization. She is pending 1 more troponin and I signed her out to oncoming ED physician Dr. Castro. Patient reports that her pain has resolved. CT scan showing no evidence of aneurysms or dissection. No PE. Chronic conditions affecting the care of the patient: Hypertension elevated BMI History obtained from an outside historian: N/A External record review: [facility] [place] [Diagnostic interpretations performed by me:] [Per my independent interpretation chest x-ray shows:] [Per my independent interpretation EKG shows:] Narrow complex sinus bradycardia at a rate of 49. Normal axis. First-degree AV block. QTc within normal limits. No ST segment abnormalities. No T wave inversions. Compared to prior dated last year first-degree AV block is new. Medications: Fentanyl & morphine Social determinants of health affecting disposition: N/A Management discussed with: Dr. Castro Treatment/interventions considered: N/A Response to therapies provided: Improved pain following IV analgesia Related Data Home Medications Medication Instructions Recorded Confirmed aspirin 81 mg tablet,delayed 81 mg PO DAILY 05/30/16 06/02/23 release (Aspir-) cyanocobalamin (vitamin B-12) 1,000 mcg PO DAILY 05/15/22 06/02/23 1,000 mcg capsule losartan 50 mg tablet 50 mg PO DAILY #90 tabs 05/15/22 06/02/23 bupropion HCl 150 mg tablet,12 hr 150 mg PO DAILY #90 tab-caps 11/23/22 06/02/23 sustained-release (Wellbutrin SR) amlodipine 10 mg tablet 10 mg PO DAILY #90 tabs 11/29/22 06/02/23 semaglutide 3 mg tablet 3 mg PO DAILY 30 days #30 tabs 12/18/22 06/02/23 Previous Rx's Medication Instructions Recorded losartan 50 mg tablet 50 mg PO DAILY #90 tabs 05/15/22 bupropion HCl 150 mg tablet,12 hr 150 mg PO DAILY #90 tab-caps 11/23/22 sustained-release (Wellbutrin SR) amlodipine 10 mg tablet 10 mg PO DAILY #90 tabs 11/29/22 semaglutide 3 mg tablet 3 mg PO DAILY 30 days #30 tabs 12/18/22 Allergies Allergy/AdvReac Type Severity Reaction Status Date / Time lisinopril AdvReac Intermediate Cough Verified 06/02/23 05:27 tramadol AdvReac Intermediate Nausea, Verified 06/02/23 05:27 vomitng [facility] All Active Problems (Updated 06/02/23 @ 07:50 by Hector Kaba MD) Acute lactic acidosis (Acute) Chest pain, unspecified (Acute) First degree AV block (Acute) COVID-19 (Acute) 05/25/23 Palpitations (Acute) Chest pressure (Acute) SOB (shortness of breath) (Acute) Lightheaded (Acute) Shoulder pain (Acute) Knee pain (Acute) Skin lesions (Acute) Osteoporosis (Chronic) Encounter for annual physical exam (Acute) Memory changes (Acute) Arthralgia (Acute) Acute bilateral low back pain (Acute) Neck pain (Acute) Achilles tendinitis of both lower extremities (Chronic 10/02/17) Chronic ankle pain (Chronic 12/25/17) Chronic idiopathic urticaria (Chronic 12/28/16) Depressive disorder (Chronic) FINANCIAL PROBLEMS Essential hypertension (Chronic 10/13/13) Increased BMI (Chronic) Insomnia (Chronic 08/31/15) Plantar fasciitis of left foot (Chronic 06/29/16) Ventricular arrhythmia (Chronic) PVC'S, PAC'S Primary osteoarthritis of hip (Chronic) Medical History (Updated 06/02/23 @ 07:50 by Hector Kaba MD) Chest pain (04/30/14) Depression Hypertension Piriformis syndrome of left side Right hip pain (09/15/14) XR - mild to moderate 09/10 Right hip pain (09/15/14) Skin lesion (01/25/16) Tendinitis of right hip flexor Surgical History (Updated 10/13/19 @ 11:16 by Holly Mcknight MD, [place]) Arthroplasty 12/14/15-RIGHT TOTAL HIP section (~03/1991) History of bilateral ligation of fallopian tubes History of section laceration (~03/1989) Leg Ligation of fallopian tube Open Carpal Tunnel release B/L Status post carpal tunnel release Status post hip replacement (12/14/15) Total replacement of hip Family History (Updated 11/18/21 @ 14:12 by Geno De La Garza) Mother , 92 Stroke Father , 40 Heart disease Myocardial infarction Brother Diabetes Essential hypertension Heart disease Stroke Maternal Grandfather Stroke Paternal Grandfather Heart disease Paternal Grandmother Heart disease Brother Diabetes Essential hypertension Hyperlipidemia Daughter Essential hypertension Social History (Updated 12/19/22 @ 15:33 by Lucita Crowe) Smoking/Tobacco Use Status: Never Second Hand Exposure: Yes Smoking risk assessment performed?: Yes Alcohol Intake: current Alcohol Intake frequency: holidays/special occasions only Alcohol type: hard liquor Drug use: Never Substance use type: does not use Caregiver/Support person: No Household members: spouse Housing: house Communication Needs: None Do you need help understanding health information?: Rarely Pets and animals: No Sexually active: Yes Do you think of yourself as: straight/heterosexual Current gender identity: female What is your relationship status?: How often do you talk on the phone with friends or family?: three or more times per week How often do you get together with friends or relatives?: three or more times per week How often do you attend catholic or restorationist services?: 1-3 times per year Do you belong to any clubs or organized social groups?: no Panel score (0-1 are the most socially isolated patients): 2 What type of physical activity do you participate in: walking and weight lifting Duration: 15-30 minutes/day Frequency: 5-6 times per week Elvia/Taoism: Alevism Special elvia needs: No Seatbelt use: always Helmet use: No Drive intox or ride w/intox cart driver: No POCUS Exam (ED) Limited Cardiac Exam DATE OF EXAM: 06/02/23 TIME OF EXAM: 05:39 PROVIDER THAT PERFORMED THE STUDY: Hector Kaba IS THIS A REPEAT EXAM DURING THIS ENCOUNTER: no REASON FOR EXAM: Chest pain VISUALIZED STRUCTURES: Four Chambers, Left ventricle and LVOT VIEW OBTAINED: Apical 4-Chamber, Parasternal long-axis and Subxiphoid PERTINENT FINDINGS/IMPRESSION: Other (Good squeeze, RV less than LV, aortic outflow track less than 4 cm, no significant pericardial effusion); No LV dysfunction INCIDENTAL FINDINGS: Good squeeze, RV less than LV, aortic outflow track less than 4 cm, no significant pericardial effusion Exam complete Limited Vascular Exam DATE OF EXAM: 06/02/23 TIME OF EXAM: 05:39 PROVIDER THAT PERFORMED THE STUDY: Hector Kaba Vascular Exam: Abdominal aorta REASON FOR EXAM: Other indication: Chest pain Exam complete DIFFERENTIAL DIAGNOSES: Abdominal aorta less than 3 cm not consistent with AAA INCIDENTAL FINDINGS: Abdominal aorta less than 3 cm not consistent with AAA
[2023-06-02] MEDS: Normal Saline 500 ML IV (05:25)
[2023-06-02] MEDS: Ondansetron 4 MG/2 ML VIAL IVP (05:28)
[2023-06-02] MEDS: fentaNYL 100 MCG/2 ML VIAL 50 MCG IVP ×2 (05:31→05:40)
[2023-06-02 05:38] LABS: Abs Immature Grans 0.01 10^3/uL (0.0-0.06); Absolute Basophil Count 0.01 10^3/uL (0.0-0.2); Absolute Eosinophil Count 0.09 10^3/uL (0.0-0.7); Absolute Lymphocyte Count 2.97 10^3/uL (1.2-3.4); Absolute Monocyte Count 0.54 10^3/uL (0.1-0.8); Absolute Neutrophil Count 2.78 10^3/uL (1.2-6.7); Basophils % 0.2; Eosinophils % 1.4; HCT 42.7 % (36.0-46.0); Immature Grans % 0.2; Lymphocytes % 46.4; MCH 32.7 pg (27.0-33.0); MCHC 35.1 % (32.0-36.0); MCV 93 fL (80-95); MPV 9.3 fL (8.0-11.0); Monocytes % 8.4; Neutrophils % 43.4; Platelet Count 258 10^3/uL (130-400); RBC 4.59 10^6/uL (3.93-5.22); RDW-SD 41.9 fL
[2023-06-02 05:41] LABS: Lactate 2.1 mmol/L (0.6-1.4)
[2023-06-02] MEDS: Normal Saline - Diluent 50 ML VIAL IJ (05:53)
[2023-06-02] MEDS: Omnipaque 350 MG/ML 100 ML BTL IJ (05:53)
[2023-06-02 06:01] LABS: ALT 60 U/L (14-59); AST 82 U/L (15-37); Albumin 3.4 g/dL (3.4-5.0); Alkaline Phosphatase 103 U/L (46-116); Anion Gap 11.3 mmol/L (3-11); BUN 20 mg/dL (7-18); Bilirubin, Total 0.6 mg/dL (0.2-1.0); CO2 24.7 mmol/L (21.0-32.0); CREATININE 0.8 mg/dL (0.55-1.02); Calcium 9.5 mg/dL (8.5-10.1); Chloride 102 mmol/L (98-107); Estimated GFR 79.71 (mL/min/1.73m2); Glucose 130 mg/dL (74-106); Lipase 58 U/L (16-77); Potassium 3.7 mmol/L (3.5-5.1); Sodium 138 mmol/L (136-145); Total Protein 6.9 g/dL (6.4-8.2); Troponin I < 50 ng/L (<or=60)
[2023-06-02] MEDS: MORPHine 4 MG/ML SYR IVP (06:31)
--- NOTE | 2023-06-02 06:52 | DI.VRAD_ITS ---
PROCEDURE INFORMATION: Exam: CTA Chest With Contrast CTA Abdomen and Pelvis With Contrast Exam date and time: 06/02/2023 5:50 AM Age: 67 years old Clinical indication: Other: Central cp; Other: Chest pain TECHNIQUE: Imaging protocol: Computed tomographic angiography of the chest with contrast. Exam focused on the arteries. Computed tomographic angiography of the abdomen and pelvis with contrast. Exam focused on the arteries. 3D rendering (Not supervised by radiologist): MIP and/or 3D reconstructed images were created by the technologist. Radiation optimization: All CT scans at this facility use at least one of these dose optimization techniques: automated exposure control; mA and/or kV adjustment per patient size (includes targeted exams where dose is matched to clinical indication); or iterative reconstruction. COMPARISON: No relevant prior studies available. FINDINGS: VASCULATURE: Pulmonary arteries: Normal. No pulmonary emboli. Aorta: No aortic aneurysm. No aortic dissection. Celiac trunk and mesenteric arteries: No occlusion or significant stenosis. Renal arteries: No occlusion or significant stenosis. Right iliac arteries: No occlusion or significant stenosis. Left iliac arteries: No occlusion or significant stenosis. CHEST: Lungs: Unremarkable. No consolidation. No masses. Pleural spaces: Unremarkable. No pneumothorax. No pleural effusion. Heart: Mild cardiomegaly Diaphragm: Small sliding-type hiatal hernia. ABDOMEN AND PELVIS: Liver: Fatty infiltration of the liver Gallbladder and bile ducts: Unremarkable. No calcified stones. No ductal dilation. Pancreas: Unremarkable. No mass. No ductal dilation. Spleen: Unremarkable. No splenomegaly. Adrenal glands: Unremarkable. No mass. Kidneys and ureters: Unremarkable. No solid mass. No hydronephrosis. Stomach and bowel: Unremarkable. No obstruction. No mucosal thickening. Appendix: No evidence of appendicitis. Intraperitoneal space: Unremarkable. No free air. No significant fluid collection. Urinary bladder: Unremarkable. No mass. Reproductive: Unremarkable as visualized. Lymph nodes: Unremarkable. No enlarged lymph nodes. Bones/joints: Postop surgical change right hip joint. Soft tissues: Unremarkable. IMPRESSION: 1. No evidence of aneurysms or dissection. 2. Cardiomegaly without pericardial effusion. 3. No pulmonary embolism. 4. Small sliding-type hiatal hernia. 5. Fatty infiltration of the liver Dictated and Authenticated by: Dayami Hay MD. Ordering:LAKEISHA Young MD
--- NOTE | 2023-06-02 07:22 | W.EDPROG ---
Date of service: 06/02/23 Time of Service: 07:00 Medical Decision Making This patient was signed out to me. Please see previous notes for H&P and initial eval. In brief, 67yo F presenting with severe substernal chest pain for one day. Workup thus far with reassuring; EKG with no acute ischemic changes, CBC & CMP, normal lipase, borderline lactate at 2.1 (reassuring against mesenteric ischemia, normal bicarb), CT with no pulmonary embolism, aortic dissection, or other acute pathology, initial troponin negative. Signed out pending repeat troponin; if normal possibly discharge home. Repeat troponin negative. On reassessment patient is well appearing with reassuring vital signs. Entirely pain free at this time, though pain was severe earlier. No tenderness including no RUQ or epigastric tenderness on exam. Unclear etiology of symptoms (? GI/reflux?), workup today reassuring. Did have negative stress test 6 months ago; HEART score 3 (Hx 0, EKG 0, Age +2 RF +1), low risk. Discussed with patient observation vs cardiology followup on Sunday; prefers outpatient followup which is reasonable. Discharged home; discharge instructions including return precautions were reviewed with patient who verbalized understanding. All questions were answered and they are in full agreement with the plan. Imaging Data Radiologic Study: Imaging: CT Scan Radiologist's impression: IMPRESSION: 1. ? No evidence of aneurysms or dissection. 2. ? Cardiomegaly without pericardial effusion. 3. ? No pulmonary embolism. 4. ? Small sliding-type hiatal hernia. 5. ? Fatty infiltration of the liver Lab Data Lab results reviewed: Yes I reviewed the patient's lab results. Labs: Laboratory Tests Range/Units 06/02/23 06/02/23 06/02/23 05:20 05:20 05:35 WBC (4.4-10.8) 10^3/uL 6.40 RBC (3.93-5.22) 10^6/uL 4.59 Hgb (11.2-15.7) g/dL 15.0 Hct (36.0-46.0) % 42.7 MCV (80-95) fL 93 MCH (27.0-33.0) pg 32.7 MCHC (32.0-36.0) % 35.1 RDW (11.7-14.6) % 12.0 Plt Count (130-400) 10^3/uL 258 MPV (8.0-11.0) fL 9.3 Immature Gran % 0.2 Neutrophils % 43.4 Lymphocytes % 46.4 Monocytes % 8.4 Eosinophils % 1.4 Basophils % 0.2 Nucleated RBC % (0.0-0.3) % 0.0 Absolute Neutrophils (1.2-6.7) 10^3/uL 2.78 Absolute Lymphocytes (1.2-3.4) 10^3/uL 2.97 Absolute Monocytes (0.1-0.8) 10^3/uL 0.54 Absolute Eosinophils (0.0-0.7) 10^3/uL 0.09 Absolute Basophils (0.0-0.2) 10^3/uL 0.01 VBG Lactate (0.6-1.4) mmol/L 2.1 H Sodium (136-145) mmol/L 138 Potassium (3.5-5.1) mmol/L 3.7 Chloride (98-107) mmol/L 102 Carbon Dioxide (21.0-32.0) mmol/L 24.7 Anion Gap (3-11) mmol/L 11.3 H BUN (7-18) mg/dL 20 H Creatinine (0.55-1.02) mg/dL 0.8 Est GFR (CKD-EPI 2020) (mL/min/1.73m2) 79.71 Glucose (74-106) mg/dL 130 H Calcium (8.5-10.1) mg/dL 9.5 Total Bilirubin (0.2-1.0) mg/dL 0.6 AST (15-37) U/L 82 H ALT (14-59) U/L 60 H Alkaline Phosphatase (46-116) U/L 103 Troponin I (<or=60) ng/L < 50 Total Protein (6.4-8.2) g/dL 6.9 Albumin (3.4-5.0) g/dL 3.4 Lipase (16-77) U/L 58 Patient ABO/Rh Antibody Screen Range/Units 06/02/23 06:05 WBC (4.4-10.8) 10^3/uL RBC (3.93-5.22) 10^6/uL Hgb (11.2-15.7) g/dL Hct (36.0-46.0) % MCV (80-95) fL MCH (27.0-33.0) pg MCHC (32.0-36.0) % RDW (11.7-14.6) % Plt Count (130-400) 10^3/uL MPV (8.0-11.0) fL Immature Gran % Neutrophils % Lymphocytes % Monocytes % Eosinophils % Basophils % Nucleated RBC % (0.0-0.3) % Absolute Neutrophils (1.2-6.7) 10^3/uL Absolute Lymphocytes (1.2-3.4) 10^3/uL Absolute Monocytes (0.1-0.8) 10^3/uL Absolute Eosinophils (0.0-0.7) 10^3/uL Absolute Basophils (0.0-0.2) 10^3/uL VBG Lactate (0.6-1.4) mmol/L Sodium (136-145) mmol/L Potassium (3.5-5.1) mmol/L Chloride (98-107) mmol/L Carbon Dioxide (21.0-32.0) mmol/L Anion Gap (3-11) mmol/L BUN (7-18) mg/dL Creatinine (0.55-1.02) mg/dL Est GFR (CKD-EPI 2020) (mL/min/1.73m2) Glucose (74-106) mg/dL Calcium (8.5-10.1) mg/dL Total Bilirubin (0.2-1.0) mg/dL AST (15-37) U/L ALT (14-59) U/L Alkaline Phosphatase (46-116) U/L Troponin I (<or=60) ng/L Total Protein (6.4-8.2) g/dL Albumin (3.4-5.0) g/dL Lipase (16-77) U/L Patient ABO/Rh A Positive Antibody Screen NEGATIVE Discharge Plan Disposition Patient Disposition: Home Condition: Good Discharge Details Clinical Impression: Chest pain, unspecified, First degree AV block, Elevated lactic acid level Primary Care Provider: Holly Mcknight ED Provider: No Castro Home Meds and New Rx's Prescriptions: No Action cyanocobalamin (vitamin B-12) 1,000 mcg capsule 1,000 mcg PO DAILY losartan 50 mg tablet 50 mg PO DAILY Qty: 90 4RF semaglutide 3 mg tablet 3 mg PO DAILY 30 Days Qty: 30 2RF aspirin [Aspir-81] 81 MG tablet,delayed release (DR/EC) 81 mg PO DAILY bupropion HCl [Wellbutrin SR] 150 mg tablet sustained-release 12 hr 150 mg PO DAILY Qty: 90 4RF amlodipine 10 mg tablet 10 mg PO DAILY Qty: 90 4RF Discharge Instructions Instructions: Chest Pain (ED) Additional Instructions: Followup with cardiology on Sunday or Sunday- they will call you to schedule an appointment. Call your primary care doctor today to schedule an appointment for early next week to follow up on your visit here; mention that you have a hiatal hernia on your CT scan. Return to the emergency department for new or worsening symptoms, including if your chest pain returns, you have difficulty breathing, feel like you are going to pass out, or have any other concerns. Referrals: Holly Mcknight MD, [place] [Primary Care Provider] -
[2023-06-02 08:33] LABS: Troponin I < 50 ng/L (<or=60)
--- NOTE | 2023-06-02 09:08 | NUR.NOTE ---
Referral put in to Cardiology due to Chest Pain. Would like seen SundayJun 04 or SundayJun 05.
== END 2023-06-02 09:19 | disposition home or self-care (01) ==
PROVIDERS: Emergency Medicine; Emergency Provider Student in an Organized Health Care Education/Training Program; PCP Family Medicine
DX: R07.9 Chest pain, unspecified (principal); I44.0 Atrioventricular block, first degree; R00.1 Bradycardia, unspecified; K57.30 Diverticulosis of large intestine without perforation or abscess without bleeding; K42.9 Umbilical hernia without obstruction or gangrene; K76.0 Fatty (change of) liver, not elsewhere classified
CPT/HCPCS: 36415; 71275; 80053; 83690; 86850; 86900; 86901; 93005; 96361; 96374; 96375; 99285; 74174; 83605; 84484; 85025; 93010; J2270; J2405; J3010; J3490

== ENCOUNTER 2024-01-10 05:20 | Outpatient (CLI) | payer BC, SELFPAY ==
[2024-01-10 13:36] LABS: ALT 38 U/L (14-59); AST 22 U/L (15-37); Albumin 3.8 g/dL (3.4-5.0); Alkaline Phosphatase 81 U/L (46-116); Anion Gap 9.6 mmol/L (3-11); BUN 25 mg/dL (7-18); Bilirubin, Total 0.4 mg/dL (0.2-1.0); CO2 27.4 mmol/L (21.0-32.0); CREATININE 0.9 mg/dL (0.55-1.02); Calcium 8.9 mg/dL (8.5-10.1); Chloride 107 mmol/L (98-107); Estimated GFR 68.77 (mL/min/1.73m2); Glucose 81 mg/dL (74-106); Potassium 3.8 mmol/L (3.5-5.1); Sodium 144 mmol/L (136-145); TSH (W/Ref FT4) 1.83 uIU/mL (0.36-3.74); Total Protein 6.9 g/dL (6.4-8.2)
[2024-01-10 13:38] LABS: Vitamin B12 > 2000 pg/mL (193-986)
[2024-01-10 21:38] LABS: Hepatitis C Ab w Rflx HCV PCR Negative (Negative)
== END 2024-01-10 05:21 | disposition home or self-care (01) ==
LOC: LOS 05:20
PROVIDERS: PCP Family Medicine; Visit Provider Family Medicine
DX: Z00.00 Encounter for general adult medical examination without abnormal findings (principal)
CPT/HCPCS: 36415; 80053; 86803; 82607; 84443

== ENCOUNTER 2024-09-11 09:43 | Outpatient (CLI) | payer MEDICARE, SELFPAY ==
--- NOTE | 2024-09-11 09:15 | DI.RAD_ITS ---
Exam(s) XR KNEE LT 3V AP,LAT,HANH EXAM: XR KNEE LT 3V AP,LAT,HANH CLINICAL HISTORY: left knee pain, M25.562. TECHNIQUE: 2D digital imaging was performed. Three views. COMPARISON: CR XR KNEE RT 3V AP,LAT,HANH from 06/01/2021 FINDINGS: BONES: No acute fracture is present. No bony destructive lesion is seen. JOINTS: Severe narrowing of medial femoral tibial joint space. Mild lateral subluxation of the tibia with respect to the femur. Periarticular spurring throughout. No joint effusion is seen. Faint c hondrocalcinosis. SOFT TISSUE: Venous varicosities. IMPRESSION: Advanced degenerative changes in the medial femoral tibial joint. DATA REPOSITORY: RADIATION DOSE DELIVERED:
== END 2024-09-11 10:03 ==
PROVIDERS: PCP Family Medicine; Visit Provider Family Medicine
DX: M25.562 Pain in left knee (principal)
CPT/HCPCS: 73562

== ENCOUNTER 2025-01-12 14:27 | Outpatient (CLI) | payer MEDICARE, SELFPAY ==
--- NOTE | 2025-01-12 13:30 | DI.RAD_ITS ---
Exam(s) XR STANDING ALIGNMENT EXAM: XR STANDING ALIGNMENT CLINICAL HISTORY: OA KNEE. TECHNIQUE: 2D digital imaging was performed. Four images were obtained. COMPARISON: CR XR hip pelvis adult Bl from 03/14/2019 CR XR KNEE RT 3V AP,LAT,HANH from 06/01/2021 CR XR KNEE LT 3V AP,LAT,HANH from 09/11/2024 FINDINGS: BONES: There are stable postsurgical changes of a right total hip arthroplasty. The left hip is well maintained. In the right knee, there is chondrocalcinosis present. The joint spaces are otherwise well maintained. In the left knee, there is chondrocalcinosis seen in both the medial and lateral fe moral tibial joint. Small osteophytes are seen in the lateral femoral tibial joint. The ankles are well maintained.There is no significant leg length discrepancy. SOFT TISSUE: Normal. IMPRESSION: Mild degenerative changes in the knees bilaterally, left greater than right. DATA REPOSITORY: RADIATION DOSE DELIVERED:
== END 2025-01-12 14:28 | disposition home or self-care (01) ==
LOC: DIORS 14:28
PROVIDERS: PCP Family Medicine; Referring Provider Family Medicine; Visit Provider Student in an Organized Health Care Education/Training Program
DX: M17.12 Unilateral primary osteoarthritis, left knee (principal)
CPT/HCPCS: 20610; J1010; 77073

== ENCOUNTER 2025-02-12 01:12 | Outpatient (CLI) | payer MEDICARE, SELFPAY ==
[2025-02-12 09:57] LABS: ALT 31 U/L (14-59); AST 19 U/L (15-37); Albumin 3.7 g/dL (3.4-5.0); Alkaline Phosphatase 95 U/L (46-116); Anion Gap 4.9 mmol/L (3-11); BUN 21 mg/dL (7-18); Bilirubin, Total 0.6 mg/dL (0.2-1.0); CO2 30.1 mmol/L (21.0-32.0); CREATININE 0.7 mg/dL (0.55-1.02); Chloride 105 mmol/L (98-107); Estimated GFR 92.41 (mL/min/1.73m2); Glucose 87 mg/dL (74-106); Potassium 4.1 mmol/L (3.5-5.1); Sodium 140 mmol/L (136-145); TSH (W/Ref FT4) 1.52 uIU/mL (0.36-3.74); Total Protein 6.8 g/dL (6.4-8.2); Vitamin B12 595 pg/mL (193-986)
== END 2025-02-12 01:13 | disposition home or self-care (01) ==
LOC: LBO 01:12
PROVIDERS: PCP Family Medicine; Visit Provider Family Medicine
DX: E53.8 Deficiency of other specified B group vitamins (principal); R53.83 Other fatigue; E03.9 Hypothyroidism, unspecified; I10 Essential (primary) hypertension
CPT/HCPCS: 36415; 80053; 82533; 82607; 84443

== ENCOUNTER 2025-02-13 00:48 | Outpatient (CLI) | payer MEDICARE, SELFPAY ==
--- NOTE | 2025-02-13 06:24 | DI.MAMMO_ITS ---
Exam(s) MAMMO SCREENING EXAM: MAMMO SCREENING CLINICAL HISTORY: screening,z12.39 TECHNIQUE: Mammograms were interpreted according to the usual protocol including computer analysis with CAD system, tomosynthesis and C-view imaging. COMPARISON: 2014 through 2022 FINDINGS: The breasts are composed of mainly fatty density , Breast Density category A. No suspicious masses or suspicious microcalcifications are seen. No skin thickening or abnormal axillary lymph nodes are seen. There has been no significant change from prior exams. IMPRESSION: BI-RADS Category 1, Negative mammogram Yearly screening mammography is recommended. Breast Density- Category A - The breast are almost entirely fatty. Breast density Category C or D implies that the patient has dense breast tissue. Dense breast tissue can make it harder to find cancer on a mammogram. Dense breast tissue is also associated with an increased risk of breast cancer. This information about the result of the mammogram report was provided to the patient to raise their awareness. Use this report when you speak with the patient about their risks for breast cancer, which includes their family history. At that time, you may recommend additional screening tests (Ultrasound or MRI) as these tests may add significant information. A negative radiographic report should not delay biopsy if a dominant or clinically suspicious mass is present. Up to ten percent of cancers are not identified on mammography. A negative report may reinforce clinical impression. Adenosis and dense breasts may obscure an underlying neoplasm. False positive reports average 6 to 10%. Patient will receive a letter notifying them of these results.
== END 2025-02-13 01:08 ==
LOC: DI 00:48
PROVIDERS: PCP Family Medicine; Visit Provider Family Medicine
DX: Z12.31 Encounter for screening mammogram for malignant neoplasm of breast (principal); R92.313 Mammographic fatty tissue density, bilateral breasts
CPT/HCPCS: 77063; 77067

== ENCOUNTER 2025-02-16 02:42 | Outpatient (CLI) | payer MEDICARE, SELFPAY ==
--- NOTE | 2025-02-16 07:30 | DI.DEXA_ITS ---
Exam(s) XR DEXA BONE DENSITY W/WO OSVALDO EXAM: XR DEXA BONE DENSITY W/WO OSVALDO CLINICAL HISTORY: post menopausal STATUS SCREENING FOR OSTEOPOROSIS,Z78.0 TECHNIQUE: COMPARISON: CR XR DEXA BONE DENSITY W/WO OSVALDO from 03/09/2021 FINDINGS: Lateral Spine Image: Unremarkable. No compression deformities identified. Left hip: Total T-Score: -2.2. This compares to -1.6 on the prior examination. Total Z-Score: -0.6 T- and Z-scores: There is osteoporosis seen in the femoral neck with a T-score of -2.6. Lumbar Spine: Total T-Score: -2.1. This compares to -2.1 on the prior examination. Total Z-Score: 0.1 T- and Z-scores: There is osteoporosis seen in the L1 and L2 vertebral bodies with T-scores of -2.5 and -2.6 respectively. IMPRESSION: Note is made of osteoporosis now in the femoral neck with a T-score of -2.6.
== END 2025-02-16 03:02 ==
LOC: DI 02:42
PROVIDERS: PCP Family Medicine; Visit Provider Family Medicine
DX: Z13.820 Encounter for screening for osteoporosis (principal); Z78.0 Asymptomatic menopausal state; M81.0 Age-related osteoporosis without current pathological fracture
CPT/HCPCS: 77080